=== PATIENT | female | born 1960 | race Two or more races ===

== ENCOUNTER 2022-04-28 17:54 | Emergency (ER) | payer OTHER ==
[~2022-04-28] VITALS: Ht 157.5 cm; Wt 68.0 kg
[2022-04-28] MEDS ORDERED: LIPITOR40 MG PO (18:41)
== END 2022-04-28 20:40 | disposition home or self-care (01) ==
LOC: ER 17:54
DX: S89.91XA Unspecified injury of right lower leg, initial encounter (principal); W18.39XA Other fall on same level, initial encounter; Y93.89 Activity, other specified; Y92.512 Supermarket, store or market as the place of occurrence of the external cause; Y99.9 Unspecified external cause status